=== PATIENT | female | born 1950 | race Caucasian/White ===

== ENCOUNTER 2017-10-24 11:02 | Day surgery (SDC) | payer MEDICARE, OTHER ==
[~2017-10-24 11:02] MED LIST: CEFAZOLIN 2 Gram 2 GM/50 ML BAG IVPB ONE; CELECOXIB 100 MG CAPSULE PO ONE; FAMOTIDINE 20MG TABLET PO ONE; MECLIZINE 25 MG TABLET PO ONE; METOCLOPRAMIDE 10 MG TABLET PO ONE; VANCOMYCIN HCL 1,000 MG in DEXTROSE 5 % IN WATER 250 ML IVPB ONE
[2017-10-24] MEDS ORDERED: MIDAZOLAM HCL 2MG/2ML VIAL IV ONE (11:03)
[2017-10-24] MEDS ORDERED: DEXAMETHASONE 4 MG/ML 1ML VIAL IVP ONE (11:03)
[2017-10-24] MEDS ORDERED: 0.9 % SODIUM CHLORIDE 10 ML VIAL IVP ONE (11:03)
[2017-10-24] MEDS ORDERED: KETOROLAC 30 MG/ML VIAL IVP ONE (11:03)
[2017-10-24] MEDS ORDERED: GLYCOPYRROLATE 0.2 MG/ML ML IV ONE (11:03)
[2017-10-24] MEDS ORDERED: ROPIVACAINE HCL (NAROPIN) /PF 5MG/ML 20ML VIAL IV ONE (11:03)
[2017-10-24] MEDS ORDERED: *PACU ONLY* KETAMINE HCL 10 MG/ML (20ML) VIAL IV ONE (11:03)
[2017-10-24] MEDS ORDERED: TRANEXAMIC ACID 1,000 MG/10 ML ML IV ONE ×2 (11:03)
[2017-10-24] MEDS ORDERED: PHENYLEPHRINE HCL 10 MG/ML VIAL IVP ONE (11:03)
[2017-10-24] MEDS ORDERED: BUPIVACAINE 0.5% W/EPI MPF 30 ML VIAL IVP ONE (11:03)
[2017-10-24] MEDS ORDERED: HYDROMORPHONE HCL 2 MG/ML VIAL IM PRN (13:31)
[2017-10-24] MEDS ORDERED: MAGNESIUM HYDROXIDE 30 ML UDC PO PRN (13:31)
[2017-10-24] MEDS ORDERED: NALOXONE 0.4 MG/1 ML VIAL IVP PRN (13:31)
[2017-10-24] MEDS ORDERED: KETOROLAC 30 MG/ML VIAL IVP PRN ×2 (13:31)
[2017-10-24] MEDS ORDERED: ACETAMINOPHEN W/ CODEINE 300MG/60MG TABLET PO PRN ×2 (13:31)
[2017-10-24] MEDS ORDERED: HYDROCODONE/APAP 10/325 TABLET PO PRN (13:31)
[2017-10-24] MEDS ORDERED: BISACODYL 10 MG SUPP RC PRN (13:31)
[2017-10-24] MEDS ORDERED: ACETAMINOPHEN 325 MG TAB PO PRN (13:31)
[2017-10-24] MEDS ORDERED: ZOLPIDEM TARTRATE 5 MG TABLET PO PRN (13:31)
[2017-10-24] MEDS ORDERED: DIPHENHYDRAMINE HCL 25 MG CAPSULE PO PRN (13:31)
[2017-10-24] MEDS ORDERED: TRAMADOL HCL 50 MG TABLET PO PRN (13:31)
[2017-10-24] MEDS ORDERED: ONDANSETRON HCL IV 4 MG/2 ML VIAL IVP PRN (13:31)
[2017-10-24] MEDS ORDERED: AL HYDROX/MAG HYDROX 30ML UD PO PRN (13:31)
[2017-10-24 13:44] LABS: ABO GROUP O; ANTIBODY SCREEN POSITIVE (NEGATIVE); RH TYPE POSITIVE
--- NOTE | 2017-10-24 17:07 | Rehab Evaluation ---
Patient Information - Patient Information Diagnosis: L knee OA Ordered Treatment: PT Evaluate and Treat Status: Initial Evaluation Surgery: Yes (L TKA) Date of Surgery: 10/24/17 Past Medical/Surgical Hx: PAST MEDICAL/SURGICAL HISTORY Past Surgical History hyst c scopes PMH - Respiratory Hx Respiratory Disorders No PMH - Cardiovascular Hx Cardiovascular Disorders No Exercise Tolerance Fair PMH - Neuro Hx Neurological Disorders No PMH - GI Hx Gastrointestinal Disorders No PMH - Hx Genitourinary Disorders No Comment: s/p hyst PMH - Endocrine Hx Endocrine Disorders No PMH - Musculoskeletal Hx Musculoskeletal Disorders Yes Hx Arthritis Yes: knees and hands PMH - Psych Hx Psychiatric Problems Yes Hx Depression Yes Major Depressive Episode Yes Comment: hospitalized for depression years ago PMH - Hematology/Oncology Hx Hematology/Oncology Yes Disorders Hx Cancer Yes: ovarian cancer stage 4, 10 yrs ago Hx Chemotherapy Yes Hx Radiation Therapy No Premorbid Status: Detail (Prior to surgery, patient was independent with all mobility.) Social History: Detail (The patient lives in a one story house with spouse with 4 steps and one handrail at the enterance. The bathroom is equipped with tub/ shower combination and an elevated toilet with no grab bars. The patient has a walker with wheels.) Precautions: [place], Fall, Other (WBAT on the L LE) - Time With Patient Total Time Spent With Patient (Min): 30 Treatment Procedures: Detail (Initial Evaluation, gait training) Subjective Information - Subjective Information Per Patient (The patient had no complaints of pain.) Objective Data - Mental Status Patient Orientation: Oriented x3 - Visual Perception Appears within normal limits for therapeutic activities - ROM Not within normal limits (The patient's L knee was limited s/p surgery. All other AROM was WNL.) - Strength/Tone Not within normal limits (The patient's L LE strength was not tested secondary to s/p surgery, however strength was functional ie: patient was able to complete a SLR. R LE was WFL.) - Bed Mobility Independent (The patient was independent with supine to and from sit transfer.) - Transfers Independent (The patient was independent with sit to and from stand transfer and toilet transfer.) - Balance Balance Sitting: Good Balance Standing: Good - Gait Detail (The patient ambulated with wheeled walker WBAT on the L LE with supervision for safety a distance of 60 feet x 1.) Therapy Assessment - Therapy Assessment Detail (The patient was independent with bed mobilty, transfers and supervision for safety only with ambulation. Feel the patient will progress well with mobility.) Patient Education - Patient Education Teaching Topic: Exercise/Activity (The patient completed TKA exercise program including heel slides, ankle pumps, hamstring sets, quad sets, gluteal sets and SLR.) Response: Return Demonstration Teaching Method: Discussion, Handout Teaching Recipient: Patient Barriers To Learning: None Problem List - Problem List Physical Therapy Problem List: Detail (Decreased L knee AROM and L LE strength as to be expected following surgery.) Goals - Goals Physical Therapy Goals: The patient will ambulate on stairs with supervision for safety using proper technique. Prognosis - Prognosis Good Plan - Plan Physical Therapy Plan: PT 1-2 times for gait training on stairs.
[2017-10-24] MEDS: CITALOPRAM 20 MG TABLET PO SCH (21:08)
[2017-10-24] MEDS: DOCUSATE SODIUM 100 MG CAPSULE PO SCH (21:11)
[2017-10-24] MEDS: POTASSIUM CHLORIDE/D5-0.9%NACL 20 MEQ/1,000 ML BAG IV SCH ×2 (21:11→22:13)
[2017-10-24] MEDS: CEFAZOLIN 1 Gram 1 GM/50 ML BAG IVPB SCH ×2 (21:15→21:30)
[2017-10-25] MEDS: CEFAZOLIN 1 Gram 1 GM/50 ML BAG IVPB SCH ×2 (03:43→04:35)
[2017-10-25] MEDS: POTASSIUM CHLORIDE/D5-0.9%NACL 20 MEQ/1,000 ML BAG IV SCH (06:20)
[2017-10-25] MEDS: CITALOPRAM 20 MG TABLET PO SCH (09:22)
[2017-10-25] MEDS ORDERED: FERROUS SULFATE 325 MG TAB PO SCH (10:00)
[2017-10-25] MEDS ORDERED: RIVAROXABAN 10 MG TABLET PO SCH (10:00)
--- NOTE | 2017-10-25 10:16 | Physical Therapy Tx Note ---
Physical Therapy Tx Note - Treatment Note Tolerated: Good Total Time Spent With Patient: 15 Physical Therapy Tx Note: Detail (Patient was up in chair upon arrival with no complaints of pain. Patient ambulated approx. 250' with a front wheeled walker, and supervision for safety. Patient also ambulated a flight of 3 stairs using a folded walker, hand rail and proper technique with supervision for safety. Patient was left up in chair with call light in reach.) Physical Therapy Problem List: Detail (Decreased L knee AROM and L LE strength as to be expected following surgery.) Physical Therapy Goals: The patient will ambulate on stairs with supervision for safety using proper technique. (Goal Met) Prognosis: Good Physical Therapy Plan: Patient has met all IP PT goals and will be discharged to home PT.
[2017-10-25] MEDS: HYDROCODONE/APAP 10/325 TABLET PO PRN ×2 (10:24→11:46)
[2017-10-25] MEDS: DOCUSATE SODIUM 100 MG CAPSULE PO SCH (10:24)
--- NOTE | 2017-10-25 11:25 | Rehab Evaluation ---
Patient Information - Patient Information Diagnosis: DJD left knee Ordered Treatment: OT Evaluate and Treat Status: Initial Evaluation Surgery: Yes (L TKA) Date of Surgery: 10/24/17 Past Medical/Surgical Hx: PAST MEDICAL/SURGICAL HISTORY Past Surgical History hyst c scopes PMH - Respiratory Hx Respiratory Disorders No PMH - Cardiovascular Hx Cardiovascular Disorders No Exercise Tolerance Fair PMH - Neuro Hx Neurological Disorders No PMH - GI Hx Gastrointestinal Disorders No PMH - Hx Genitourinary Disorders No Comment: s/p hyst PMH - Endocrine Hx Endocrine Disorders No PMH - Musculoskeletal Hx Musculoskeletal Disorders Yes Hx Arthritis Yes: knees and hands PMH - Psych Hx Psychiatric Problems Yes Hx Depression Yes Major Depressive Episode Yes Comment: hospitalized for depression years ago PMH - Hematology/Oncology Hx Hematology/Oncology Yes Disorders Hx Cancer Yes: ovarian cancer stage 4, 10 yrs ago Hx Chemotherapy Yes Hx Radiation Therapy No Premorbid Status: Detail (Pt lives with spouse in a 1 story house with basement (laundry is in the basement). She has 5 steps and sergei railings that are far apart at the entrance. She has a tub/shower combination with a shower seat, no grab bars and an elevated toilet with grab bars. She and spouse share home mgmt , meal prep and laundry. She has a 2 wheeled walker.) Social History: Detail (Supportive spouse.) Precautions: [place], Fall, Other (WBAT on the L LE) - Time With Patient Total Time Spent With Patient (Min): 20 Treatment Procedures: Detail (OT eval low complexity) Subjective Information - Subjective Information Per Patient Objective Data - Pain Pain Present: No - Mental Status Patient Orientation: Oriented x3 - Visual Perception Appears within normal limits for therapeutic activities - ROM Within normal limits (Sergei UE AROM WNL) - Strength/Tone Within normal limits (Sergei UE strength WNL) - Coordination Appears within normal limits for therapeutic activities - Balance Balance Sitting: Good - Sensation Intact - ADL's/IADL's Detail (Pt was already dressed and per pt and nursing she was Ind. Reviewed modified dressing techniques, bathroom and kitchen safety and modifications and pt was able to verbalize understanding.) Therapy Assessment - Therapy Assessment Detail (Pt Ind with LE dressing.) Problem List - Problem List Physical Therapy Problem List: Detail (Decreased L knee AROM and L LE strength as to be expected following surgery.) Occupational Therapy Problem List: Detail (No current OT problems identified.) Goals - Goals Physical Therapy Goals: The patient will ambulate on stairs with supervision for safety using proper technique. (Goal Met) Occupational Therapy Goals: No current IP OT goals identified. Prognosis - Prognosis Good Plan - Plan Physical Therapy Plan: Patient has met all IP PT goals and will be discharged to home PT. Occupational Therapy Plan: No further IP OT recommended. Thank you for this referral.
--- NOTE | 2017-10-26 21:34 | Operative Note ---
DATE OF SURGERY: 10/24/2017 PREOPERATIVE DIAGNOSIS: END-STAGE ARTHROSIS OF THE LEFT KNEE. POSTOPERATIVE DIAGNOSIS: END-STAGE ARTHROSIS OF THE LEFT KNEE. PROCEDURE: Cemented left total knee arthroplasty using [employer] Melia II components , with a size 4 Oxinium femur, size 3 stemmed tibial baseplate, a 9 mm lipped highly cross-linked tibial insert, and a 35 mm all-plastic patella. STAFF SURGEON: CHELSEA KENNEDY M.D. ANESTHESIA: SPINAL. PREPARATION: CHLORAPREP. INDIVIDUAL CONSIDERATIONS: None. PROCEDURE: The patient was taken to the Operating Room and placed supine on the operating table. She had a successful induction of a spinal anesthetic. Her left lower extremity was prepped and then draped in the usual fashion. The limb was elevated and the tourniquet was inflated to 215 mmHg. Sharp dissection carried down through the skin and subcutaneous tissue. Small veins were coagulated with a Bovie. A medial arthrotomy was performed. The patella was everted and the knee was flexed. She had exposed bone with bone loss medially and some changes in the notch. The fat pad was resected, the ACL was sacrificed, provisional anterior meniscectomies were performed, and the capsule was released from the medial proximal tibia. The initial femoral docking pilot hole was then made free hand. The intramedullary femoral cutting jig was placed. It was cut in 7.0 degrees of valgus and adjusted for rotation and secured with pins for a 10 mm resection. The initial transverse cut was then made. A skin guide was placed in the anterior and posterior docking pilot holes. It was set for a size 4 and it was found that a size 4 would be appropriate and the anterior and posterior cuts were made. Chamfer cuts were made, osteophytes were removed, and the size 4 trial was placed and found to fit well. The tibia was brought forward and the remainder of the meniscal remnants were removed with a Bovie. The extraarticular tibial cutting jig was placed. It was cut in neutral with a 3 degree AP slope. Care was taken to adjust for rotation and flexion using the extraarticular alignment guide and bony landmarks. It was set for a 9 mm resection, keyed off the high lateral side and secured with pins. When cutting the tibia, care was taken to preserve the PCL insertion on the tibia. After removing osteophytes, I was able to fit a size 3. I adjusted for rotation and secured with pins. With a size 9 insert trial and the size 4 femoral trial, there was excellent motion and stability. Ligamentous balance, rotation, and alignment were thought to be normal. The femoral docking pilot holes were impacted and the triflange tibial stamp was impacted and these trial components were removed. The patient had a relatively thick patella. I was able to remove 9 mm of bone free hand and was able to fet a 35 patella and the three docking pilot holes were drilled. The tourniquet was let down briefly to get bleeders posteriorly and placed back up again. The knee was then thoroughly irrigated out with pulsatile Betadine and saline to remove any visual or palpable debris. The bony surfaces were then dried. A size 3 stemmed tibial baseplate was cemented into place followed by impaction of the 9 mm lipped highly cross-linked tibial insert followed by cementing in the size 4 Oxinium femur followed by cementing in the 35 mm patella. Implant surfaces were compressed, excess cement was removed, and then after the cement had set, there was excellent motion and stability. Ligamentous balance, rotation, alignment, and patellofemoral tracking were normal and no lateral release was required. The tourniquet was let down and hemostasis was obtained with a Bovie after thorough irrigation. I infiltrated the skin and subcu and periosteum with 30 mL of 0.5% Marcaine with Epinephrine. The capsule was then closed with a running #2 Quill. the subcu was closed in layers with running 0 Quill, and the skin was closed with adilia. The patient did receive a gram of tranexamic acid IV. I mixed a gram tranexamic acid with 30 mL of saline and placed it into the knee through a sterile #18 gauge needle and a sterile Bulkee compressive TAMI-type dressing was applied. The patient tolerated the procedure well. Needle and sponge counts were correct. Estimated blood loss minimal and she was taken back to Recovery in good condition. There were no complications. JOB NUMBER: [id number] [facility]
== END 2017-10-25 13:00 | disposition home health service (06) ==
LOC: SUR 11:02 → MEDSURG 14:15 → SUR 10-25 13:00
PROVIDERS: ATTEND Orthopaedic Surgery
DX: M17.12 Unilateral primary osteoarthritis, left knee (principal); Z85.43 Personal history of malignant neoplasm of ovary
CPT/HCPCS: 27447; 01402; 64447; 86900; 86901; 86850; 76942; J1885; J3370; J3490 ×3; J0690 ×3; J2795; G8978; G8979 ×2; G8980; G8987; G8988; G8989; 97530; C1776; J2370; J3480; J7060

== ENCOUNTER 2017-12-19 08:50 | Day surgery (SDC) | payer MEDICARE, OTHER ==
[2017-12-19] MEDS ORDERED: BUPIVACAINE 0.5% W/EPI MPF 30 ML VIAL IVP ONE (08:51)
[2017-12-19] MEDS ORDERED: MIDAZOLAM HCL 2MG/2ML VIAL IV ONE (08:51)
[2017-12-19] MEDS ORDERED: ROPIVACAINE HCL (NAROPIN) /PF 5MG/ML 20ML VIAL IV ONE (08:51)
[2017-12-19] MEDS ORDERED: PROPOFOL 10 MG/ML VIAL IV ONE (08:51)
[2017-12-19] MEDS ORDERED: LIDOCAINE 2% MDV (20MG/ML) 20ML VIAL IV ONE (08:51)
[2017-12-19] MEDS ORDERED: TRANEXAMIC ACID 1,000 MG in 0.9 % SODIUM CHLORIDE 100ML 100 ML IV ONE (08:51)
[2017-12-19] MEDS ORDERED: DEXAMETHASONE 4 MG/ML 1ML VIAL IVP ONE (08:51)
[2017-12-19 09:46] LABS: ABO GROUP O; ANTIBODY SCREEN POSITIVE (NEGATIVE); RH TYPE POSITIVE
[2017-12-19] MEDS ORDERED: ACETAMINOPHEN 325 MG TAB PO PRN (13:22)
[2017-12-19] MEDS ORDERED: TRAMADOL HCL 50 MG TABLET PO PRN (13:22)
[2017-12-19] MEDS ORDERED: HYDROCODONE/APAP 10/325 TABLET PO PRN (13:22)
[2017-12-19] MEDS ORDERED: HYDROMORPHONE HCL 2 MG/ML VIAL IM PRN (13:22)
[2017-12-19] MEDS ORDERED: BISACODYL 10 MG SUPP RC PRN (13:22)
[2017-12-19] MEDS ORDERED: MAGNESIUM HYDROXIDE 30 ML UDC PO PRN (13:22)
[2017-12-19] MEDS ORDERED: ACETAMINOPHEN W/ CODEINE 300MG/60MG TABLET PO PRN ×2 (13:22)
[2017-12-19] MEDS ORDERED: DIPHENHYDRAMINE HCL 25 MG CAPSULE PO PRN (13:22)
[2017-12-19] MEDS ORDERED: KETOROLAC 30 MG/ML VIAL IVP PRN ×2 (13:22)
[2017-12-19] MEDS ORDERED: AL HYDROX/MAG HYDROX 30ML UD PO PRN (13:22)
[2017-12-19] MEDS ORDERED: ZOLPIDEM TARTRATE 5 MG TABLET PO PRN (13:22)
[2017-12-19] MEDS ORDERED: NALOXONE 0.4 MG/1 ML VIAL IVP PRN (13:22)
[2017-12-19] MEDS ORDERED: ONDANSETRON HCL IV 4 MG/2 ML VIAL IVP PRN (13:22)
[2017-12-19] MEDS: HYDROCODONE/APAP 10/325 TABLET PO PRN ×2 (15:50→20:15)
[2017-12-19] MEDS ORDERED: PNEUM 13-VAL/PF 0.5 ML IM ONE (16:16)
--- NOTE | 2017-12-19 16:42 | Rehab Evaluation ---
Patient Information - Patient Information Diagnosis: R TKA Ordered Treatment: PT Evaluate and Treat Status: Initial Evaluation Surgery: Yes (TKA R ) Date of Surgery: 12/19/17 Past Medical/Surgical Hx: PAST MEDICAL/SURGICAL HISTORY Past Surgical History LTKA 10-24-17 hyst c scopes PMH - Respiratory Hx Respiratory Disorders No PMH - Cardiovascular Hx Cardiovascular Disorders No Exercise Tolerance Fair PMH - Neuro Hx Neurological Disorders No PMH - GI Hx Gastrointestinal Disorders No PMH - Hx Genitourinary Disorders No Comment: s/p hyst PMH - Endocrine Hx Endocrine Disorders No PMH - Musculoskeletal Hx Musculoskeletal Disorders Yes Hx Arthritis Yes: knees and hands PMH - Psych Hx Psychiatric Problems Yes Hx Depression Yes Comment: hospitalized for depression years ago PMH - Hematology/Oncology Hx Hematology/Oncology Yes Disorders Hx Cancer Yes: ovarian cancer stage 4, 10 yrs ago Hx Chemotherapy Yes Hx Radiation Therapy No Premorbid Status: Detail (The patient was independent with ambulation prior to surgery) Social History: Detail (The patient lives in a one story house with spouse with five steps and two handrails at the enterance. The patient's bathroom is equipped with tub/shower combination with shower bench and an elevated toilet( commode with handrails). The paient has a front wheeled walker and a standard cane.) Precautions: [place], Fall, Other (WBAT R) - Time With Patient Total Time Spent With Patient (Min): 30 Treatment Procedures: Detail (Initial Evaluation) Subjective Information - Subjective Information Per Patient (The patient had complaints of R knee pain but did not rate her pain using 0 to 10 pain scale. The patient also has complaints of L knee pain since she had TKA on this knee also 9 weeks ago.) Objective Data - Mental Status Patient Orientation: Oriented x3 - Visual Perception Appears within normal limits for therapeutic activities - ROM Not within normal limits (The patient's R knee was limited as to be expected following TKA surgery. All other AROM was WNL except for L knee which was not assessed.) - Strength/Tone Not within normal limits (R LE strength was not formally assessed secondary to status post surgery but was functional ie: patient was able to complete a SLR.) - Bed Mobility Independent (The patient was independent with supine to and from sit transfer and scooting up in bed.) - Transfers Independent (The patient was independent with sit to and from stand transfer and toilet transfer.) - Balance Balance Sitting: Good Balance Standing: Good - Gait Detail (The patient ambulated with front wheeled walker a distance of 40 feet x 1 and 10 feet x1 (to bathroom ), WBAT on the R LE with supervision for safety. The patient complained of increased knee pain during ambulation.) Therapy Assessment - Therapy Assessment Detail (The patient was independent with bed mobility and transfers with supervision for safety only with ambulation. Feel the patient will progress well with mobility.) Problem List - Problem List Physical Therapy Problem List: Detail (1) Decreased R knee AROM and decreased R LE strength 2) Nonambulatory on stairs) Goals - Goals Physical Therapy Goals: 1) The patient will be independent with TKA HEP. 2) The patient will ambulate independently with front wheeled walker a distance of 75 feet plus WBAT on the R LE. 3) The patient will ambulate on stairs with supervision using proper technique. Prognosis - Prognosis Good Plan - Plan Physical Therapy Plan: PT 1-2 visits for gait training on levels and stairs and instruction in HEP.
[2017-12-19] MEDS: POTASSIUM CHLORIDE/D5-0.9%NACL 20 MEQ/1,000 ML BAG IV SCH (17:10)
[2017-12-19] MEDS: CEFAZOLIN 2 Gram 2 GM/50 ML BAG IVPB SCH (20:08)
[2017-12-19] MEDS: PATIENT OWN MED: CITALOPRAM 20 MG PO SCH (22:05)
[2017-12-19] MEDS: DOCUSATE SODIUM 100 MG CAPSULE PO SCH (22:11)
[2017-12-20] MEDS: POTASSIUM CHLORIDE/D5-0.9%NACL 20 MEQ/1,000 ML BAG IV SCH (02:13)
[2017-12-20] MEDS: CEFAZOLIN 2 Gram 2 GM/50 ML BAG IVPB SCH ×3 (03:28→11:29)
[2017-12-20] MEDS: HYDROCODONE/APAP 10/325 TABLET PO PRN ×3 (03:40→12:35)
[2017-12-20 06:53] LABS: HEMATOCRIT 35.5 % (35.0-47.0); HEMOGLOBIN 11.1 gm/dl (11.6-16.0)
[2017-12-20 07:02] LABS: BLOOD UREA NITROGEN 9 mg/dL (8-23); CREATININE 0.6 mg/dL (0.5-0.9); EST GLOMERULAR FILTRATION RATE > 60 mL/min; GLUCOSE,RANDOM 132 mg/dL (74-109)
[2017-12-20] MEDS: DOCUSATE SODIUM 100 MG CAPSULE PO SCH (09:34)
[2017-12-20] MEDS: PATIENT OWN MED: CITALOPRAM 20 MG PO SCH (09:35)
--- NOTE | 2017-12-20 09:58 | Rehab Evaluation ---
Patient Information - Patient Information Diagnosis: R TKA Ordered Treatment: OT Evaluate and Treat Status: Initial Evaluation Surgery: Yes (TKA R ) Date of Surgery: 12/19/17 Past Medical/Surgical Hx: PAST MEDICAL/SURGICAL HISTORY Past Surgical History LTKA 10-24-17 hyst c scopes PMH - Respiratory Hx Respiratory Disorders No PMH - Cardiovascular Hx Cardiovascular Disorders No Exercise Tolerance Fair PMH - Neuro Hx Neurological Disorders No PMH - GI Hx Gastrointestinal Disorders No PMH - Hx Genitourinary Disorders No Comment: s/p hyst PMH - Endocrine Hx Endocrine Disorders No PMH - Musculoskeletal Hx Musculoskeletal Disorders Yes Hx Arthritis Yes: knees and hands PMH - Psych Hx Psychiatric Problems Yes Hx Depression Yes Comment: hospitalized for depression years ago PMH - Hematology/Oncology Hx Hematology/Oncology Yes Disorders Hx Cancer Yes: ovarian cancer stage 4, 10 yrs ago Hx Chemotherapy Yes Hx Radiation Therapy No Premorbid Status: Detail (The patient was independent with ambulation and shared IADL's with spouse prior to surgery) Social History: Detail (The patient lives in a one story house with spouse with five steps and two handrails at the entrance. The patient's bathroom is equipped with tub/shower combination with shower bench and an elevated toilet( commode with handrails). The patient has a front wheeled walker and a standard cane.) Precautions: [place], Fall, Other (WBAT R) - Time With Patient Total Time Spent With Patient (Min): 30 Treatment Procedures: Detail (OT eval low complexity) Subjective Information - Subjective Information Per Patient Objective Data - Pain Pain Present: Yes (03/25) - Mental Status Patient Orientation: Oriented x3 - Visual Perception Appears within normal limits for therapeutic activities - ROM Within normal limits (Sergei UE AROM WNL) - Strength/Tone Within normal limits (Sergei UE strength WNL) - Coordination Appears within normal limits for therapeutic activities - Bed Mobility Independent (Ind with supine to sit.) - Transfers Independent (Ind with sit to stand from EOB, toilet and chair heights.) - Balance Balance Sitting: Good Balance Standing: Good - Sensation Intact - Gait Detail (Pt ambulating in room with 2 wheeled walker Indly.) - ADL's/IADL's Detail (Pt Ind with toileting. Pt educated and able to demonstrate Ind with modified LE dressing techniques including doffing slipper socks and donning underwear, pants and tennis shoes. Reviewed kitchen and shower safety and modifications, pt verbalizes learning.) Therapy Assessment - Therapy Assessment Detail (Pt is safe and Ind with modified LE dressing techniques.) Problem List - Problem List Physical Therapy Problem List: Detail (1) Decreased R knee AROM and decreased R LE strength 2) Nonambulatory on stairs) Occupational Therapy Problem List: Detail (No current IP OT problems identified. ) Goals - Goals Physical Therapy Goals: 1) The patient will be independent with TKA HEP. 2) The patient will ambulate independently with front wheeled walker a distance of 75 feet plus WBAT on the R LE. 3) The patient will ambulate on stairs with supervision using proper technique. Occupational Therapy Goals: No current IP OT goals identified. Prognosis - Prognosis Good Plan - Plan Physical Therapy Plan: PT 1-2 visits for gait training on levels and stairs and instruction in HEP. Occupational Therapy Plan: No further IP OT recommended. Thank you for this referral.
[2017-12-20] MEDS ORDERED: FERROUS SULFATE 325 MG TAB PO SCH (10:00)
[2017-12-20] MEDS ORDERED: RIVAROXABAN 10 MG TABLET PO SCH (10:00)
--- NOTE | 2017-12-20 10:17 | Physical Therapy Tx Note ---
Physical Therapy Tx Note - Treatment Note Tolerated: Good Total Time Spent With Patient: 25 Physical Therapy Tx Note: Detail (The patient ambulated with front wheeled walker a distance of 134 feet x 1 independently WBAT on the R LE. The patient ambulated on 3 steps with one handrail and folded walker using proper technique with supervision for safety. The patient completed a HEP of TKA exercises including: ankle pumps, quad sets, gluteal sets, hamstring sets, SLR and supine heel slides. The patient has met all inpt goals and is discharged from inpatient PT.) Physical Therapy Problem List: Detail (1) Decreased R knee AROM and decreased R LE strength 2) Nonambulatory on stairs) Physical Therapy Goals: 1) The patient will be independent with TKA HEP (Goal Met). 2) The patient will ambulate independently with front wheeled walker a distance of 75 feet plus WBAT on the R LE. (Goal Met). 3) The patient will ambulate on stairs with supervision using proper technique. (Goal Met) Physical Therapy Plan: The patient is discharged from inpatient PT and is to continue with outpatient PT.
--- NOTE | 2017-12-21 09:20 | Operative Note ---
DATE OF SERVICE: 12/19/2017. DATE OF SURGERY: 12/19/2017. PREOPERATIVE DIAGNOSIS: End-stage arthrosis of the right knee. POSTOPERATIVE DIAGNOSIS: End-stage arthrosis of the right knee. OPERATION: Cemented right total knee arthroplasty using [employer] 2 components, with a size 4 Oxinium femur, a size 3 stemmed tibial baseplate, a 9 mm lipped, tightly crosslinked tibial insert, and a 35 mm all plastic patella. Staff Surgeon: Scott Raza MD. Anesthesia: Spinal. PREPARATION: ChloraPrep. INDIVIDUAL CONSIDERATIONS: None. PROCEDURE: Patient was taken to the operating room, placed supine on the operating table. She had a successful induction of a spinal anesthetic. Her right lower extremity was prepped and draped in the usual fashion. Patient had a midline approach to knee. Limb was elevated. Tourniquet was inflated to 250 mmHg. Sharp dissection carried down through skin and subcutaneous tissue. Small veins were coagulated with a Bovie. A medial arthrotomy was performed. Patella was everted. Knee was flexed. She had exposed bone with bone loss medially, large osteophytes, and some exposed bone in the notch. Fat pad was resected, ACL was sacrificed, provisional anterior meniscectomies were performed, and the capsule was released to the medial proximal tibia. The initial femoral pilot can router hole was then made freehand. The intramedullary femoral cutting jig was placed. It was cut in 7.0 degrees of valgus and adjusted for rotation for a 10 mm resection and secured with pins. Initial transverse cut was then made. Skid guide was placed in the anterior and posterior pilot can router holes. It was found that a size 4 would be appropriate, but I needed to translate it anteriorly 2 mm using a displacement block. The anterior and posterior cuts, followed by chamfer cuts were made. Osteophytes were removed, and a size 4 trial was placed and found to fit well. Tibia was brought forward, and the remainder of the meniscal remnants were removed with the Bovie. The extraarticular tibial cutting jig was placed. It was cut in neutral with a 3 degree AP slope. Care was taken to adjust for rotation and flexion using the extraarticular alignment guide and bony landmarks. It was set for a 9 mm resection keyed off the high lateral side and secured with pins. When cutting the tibia, care was taken to preserve the PCL insertion on the tibia. Large medial osteophytes were removed with a rongeur, and I was able to fit a 3 baseplate trial. It was adjusted for rotation and secured with pins. With a 9 mm trial and femoral trial, there were excellent motion and stability. Ligamentous balance, rotational alignment, and patellofemoral tracking were normal at this point. The femoral pilot can router holes were impacted, and the tibial keel stamp was impacted, and these trial components were removed. Patient had a thick patella, and roughly 9 mm of bone were removed with an oscillating saw. I was able to easily fit a 35 mm patella, and the 3 pilot can router holes were drilled. The tourniquet was let down briefly to get bleeders posteriorly, then placed back up again. The knee was then thoroughly irrigated out with pulsatile Betadine saline to remove any visual or palpable debris. Bony surfaces were then dried. A size 3 stemmed tibial baseplate was cemented into place, followed by impaction of the 9 mm lipped tibial insert, followed by cementing in a size 4 Oxinium femur, followed by cementing in a 35 mm patella. Implant surfaces were compressed, excess cement was removed, and after the cement had set, there were excellent motion and stability. Ligamentous balance, rotational alignment, and patellofemoral tracking were normal. No lateral release was required. After irrigation, the tourniquet was let down. Hemostasis was obtained with a Bovie. The skin, subcu, and periosteum were infiltrated with 30 mL of 0.5% Marcaine with epinephrine. The capsule was then closed with a running #2 Quill, subcu was closed in layers with running 0 Quill, skin was closed with adilia. Patient did receive 1 g of tranexamic acid preoperatively. I mixed 1 g of tranexamic acid with 30 mL of saline and injected it into the knee through a sterile 18 gauge needle, and a sterile bulky, compressive TAMI dressing was applied. Patient tolerated the procedure well. Needle and sponge counts were corrected. Estimated blood loss was minimal, and she was taken back to recovery in good condition. There were no complications. KARIE
== END 2017-12-20 13:25 | disposition home or self-care (01) ==
LOC: SUR 08:50 → MEDSURG 14:05 → SUR 12-20 13:25
PROVIDERS: ATTEND Orthopaedic Surgery
DX: M17.11 Unilateral primary osteoarthritis, right knee (principal); C56.9 Malignant neoplasm of unspecified ovary; Z23 Encounter for immunization
CPT/HCPCS: 27447; 01402; 64447; 85018; 85014; 80048; 86900; 86901; 86850; 90670; 90686; 76942; G0008; J1885; J3370; J3490 ×4; J0690 ×2; J2795; G8978; G8979 ×2; G8980; G8987; G8988; G8989; 97110; 97530; J3480; J7060